=== PATIENT | female | born 1955 | race Caucasian/White ===

== ENCOUNTER 2020-02-12 18:36 | Inpatient (IN) | payer MEDICARE, MEDICAID ==
[~2020-02-12] VITALS: Ht 162.6 cm; Wt 75.5 kg
[2020-02-12] MEDS ORDERED: SODIUM CHLORIDE 0.9% 1,000 ML IVB ONE (19:18)
[2020-02-12 19:27] LABS: Basophils # (auto) 0.1 10 ^3/uL (0-0.2); Basophils % (auto) 0.5 % (0.0-2.0); Eosinophils # (auto) 0.1 10 ^3/uL (0-0.8); Eosinophils % (auto) 0.3 % (0.0-7.0); Hematocrit 49.5 % (36.0-46.0); Hemoglobin 16.4 g/dL (12.2-16.2); Lymphocytes # (auto) 7.7 10 ^3/uL (0.4-5.4); Lymphocytes % (auto) 35.1 % (10.0-50.0); Mean Corpuscular Hemoglobin 29.4 pg (28.0-32.0); Mean Corpuscular Hgb Conc. 33.1 g/dL (32.0-36.0); Mean Corpuscular Volume 88.8 fL (80.0-100.0); Monocytes % (auto) 4.6 % (0.0-12.0); Neutrophils # (auto) 13.1 10 ^3/uL (1.6-8.6); Neutrophils % (auto) 59.5 % (37.0-80.0); Nucleated Red Blood Cells % 0.2 %; Platelet Count (auto) 304 10^3/uL (140-450); Red Blood Cells 5.58 10^6/uL (4.0-5.20); White Blood Cell 22.1 10^3/uL (4.4-10.8)
[2020-02-12 19:51] LABS: Alanine Aminotransferase 215 U/L (13-56); Albumin 1.9 g/dL (3.4-5.0); Anion Gap 18 (5-15); Aspartate Aminotransferase 647 U/L (15-37); BUN/Creatinine Ratio 38.3; Blood Urea Nitrogen 57 mg/dL (7-18); Calcium 9.9 mg/dL (8.5-10.1); Carbon Dioxide 18 mmol/L (21-32); Chloride 82 mmol/L (98-107); GFR African American 45 mL/min; GFR Non-African American 37 mL/min
[2020-02-12 19:52] LABS: INR 1.81 (0.9-1.15); Partial Thromboplastin Time 55.8 sec (23.64-32.05)
[2020-02-12 20:02] LABS: Glucose 20 mg/dL (74-106); Sodium 118 mmol/L (136-145)
[2020-02-12] MEDS ORDERED: DEXTROSE (50%) 50ML SYRG IV ONE (20:15)
[2020-02-12 20:38] LABS: Bilirubin, Total 30.6 mg/dL (0.2-1.0); Blood Alcohol < 3.0 mg/dL (0-5)
[2020-02-12 21:28] LABS: Alkaline Phosphatase > 5000 U/L (45-117)
[2020-02-12 21:36] LABS: Total Protein 5.6 g/dL (6.4-8.2)
[2020-02-12 22:38] LABS: Urine Bacteria FEW /hpf (None Seen); Urine Blood 1+ /uL (Negative); Urine Hyaline Cast MOD /lpf (0 - 2); Urine Mucus FEW (None Seen); Urine Specific Gravity 1.016 (1.001-1.035); Urine WBC 2 /hpf (0 - 5)
[2020-02-12 22:49] LABS: Alcohol, Urine < 3.0 mg/dL (0-10); Amphetamine Screen, Urine NEGATIVE (NEGATIVE); Barbiturate Scree,Urine NEGATIVE (NEGATIVE); Benzodiazephine Screen, Urine NEGATIVE (NEGATIVE); Cannabinoid Screen, Urine NEGATIVE (NEGATIVE); Cocaine Screen, Urine NEGATIVE (NEGATIVE); Opiate Scree,Urine NEGATIVE (NEGATIVE); Phencyclidine Screen, Urine NEGATIVE (NEGATIVE)
[2020-02-12 23:08] LABS: Lactic Acid w/Reflex 2.5 mmol/L (0.4-2.0)
[2020-02-13] MEDS ORDERED: SODIUM CHLORIDE 0.9% 1,000 ML IV SCH (01:57)
[2020-02-13] MEDS ORDERED: NITROGLYCERIN 0.4 MG SL TAB SL PRN (02:00)
[2020-02-13] MEDS ORDERED: ACETAMINOPHEN 325 MG TAB PO PRN (02:00)
[2020-02-13] MEDS ORDERED: ONDANSETRON HCL 4 MG/2 ML VIAL IV PRN (02:00)
[2020-02-13] MEDS ORDERED: MORPHINE SULF INJ 2 MG/ML SYRINGE 1ML IV PRN ×2 (02:00)
[2020-02-13] MEDS ORDERED: HYDROcodone-ACET 5/325MG TAB PO PRN (02:00)
[2020-02-13] MEDS ORDERED: DOCUSATE SOD 100 MG CAP PO PRN (02:00)
[2020-02-13 08:38] LABS: Hemoglobin 15.4 g/dL (12.2-16.2); Mean Corpuscular Hemoglobin 29.2 pg (28.0-32.0); Mean Corpuscular Hgb Conc. 32.7 g/dL (32.0-36.0); Mean Corpuscular Volume 89.3 fL (80.0-100.0); Platelet Count (auto) 297 10^3/uL (140-450); Red Blood Cells 5.26 10^6/uL (4.0-5.20); Red Cell Distribution Width 16.9 % (11.8-14.3); White Blood Cell 23.8 10^3/uL (4.4-10.8)
[2020-02-13 08:40] LABS: Basophils % (manual) 0 (0.0-2.0); Blast Cells 0; Metamyelocytes % 0; Myelocytes % 0; Promyelocytes % 0; Reactive Lymphocytes 0
[2020-02-13 08:50] LABS: Band Neutrophils % (manual) 1; Eosinophils % (manual) 1 (0-7); Lymphocytes % (manual) 20 (10.0-50.0); Monocytes % (manual) 7 (0-12)
[2020-02-13 08:58] LABS: Albumin 1.8 g/dL (3.4-5.0); Calcium 9.5 mg/dL (8.5-10.1); Potassium 4.1 mmol/L (3.5-5.1)
[2020-02-13 09:12] LABS: BUN/Creatinine Ratio 35.2; Total Protein 4.6 g/dL (6.4-8.2)
[2020-02-13] MEDS ORDERED: DEXTROSE 50% SYRINGE 50 ML IV ONE (09:18)
[2020-02-13] MEDS ORDERED: DEXTROSE (50%) 50ML SYRG IV ONE (09:45)
[2020-02-13] MEDS ORDERED: DEXTROSE (50%) 50ML SYRG IV PRN (11:00)
[2020-02-13] MEDS ORDERED: DEXTROSE 10% 1,000 ML IV SCH (11:00)
[2020-02-13] MEDS: DEXTROSE 10% 1,000 ML IV SCH (14:59)
[2020-02-13] MEDS: SODIUM CHLORIDE 0.9% 1,000 ML IV SCH (14:59)
[2020-02-13] MEDS ORDERED: LACTULOSE 20Gm/30ML SOLN PR SCH (15:30)
--- NOTE | 2020-02-13 15:31 | NUR ---
AIR MATTRESS: Air mattress ordered at [facility]. YFN 02/13/20 @ 2128. Reference #[id number]. Please call [facility] at if needed to follow up. Addendum: 02/13/20 at 1532 by Kimberly Fernando RN Amended: Links added.
--- NOTE | 2020-02-13 15:55 | NUR ---
WOUND CARE NOTE: Wound care in to see patient per wound care request regarding sacral, buttock wounds that are noted present on admission. ED nurse took photograph of patient's wounds upon admission for reference. Patient is 64 y/o female with admitting diagnosis of Hepatic Encephalopathy, Metastatic Breast Cancer. Patient is resting in ED bed #6. Patient's eyes are closed, respirations even and unlabored. She's able to assist in turning and repositioning and her Yonny score is 13. Skin/wound assessment done with the assistance of patient' s nurse, NANNETTE Weems. Noted patient's skin is yellow. Her Lt (6x3cm) and Rt (8x4cm) sacrum has Unstageable pressure injury. Wound bed is covered with thin black eschar. Katy wound is bright red with skin erosion, black necrotic tissue to distal Rt and L lower buttocks. Patient's sacral/buttocks skin issue is consistent with Unstageable pressure injury with severe moisture associated skin damage. No drainage/odor noted on wounds. Patient is cleaned by staff but still smelling urine. Cleansed patient's wounds with wound cleanser, patted dry with gauze, applied Z Guard cream and covered sacral wounds with Opti foam sacral dressing. Intact ecchymosis also noted to her Rt lateral knee, area is clean and dry, left open to air. Patient tolerated well, repositioned patient for comfort, redistributed pressure points with pillows. RECOMMENDATION: Nursing to continue BID/PRN dressing change to sacral,buttocks wounds per MD order, Dietary consult, frequent turning and repositioning schedule as condition permits, redistribute pressure points with pillows;elevate heels on pillows; air mattress (ordered),frequent katy care/check, keep clean and dry, continue monitoring by wound care while patient is hospitalized. Addendum: 02/13/20 at 1730 by Kimberly Fernando RN Amended: Links added.
[2020-02-13] MEDS ORDERED: PIPERACILLIN-TAZOB 3.375GM 100 ML IV ONE (16:00)
[2020-02-13] MEDS ORDERED: LINEZOLID 600MG/300ML 300 ML IV ONE (16:00)
--- NOTE | 2020-02-13 18:20 | NUR ---
Admit to [facility] admitted to [facility] via gurney on cardiac exercise specialist, and portable 02. Patient transferred to bed, connected to unit monitoring and oxygen, and weighed by bedscale. Patient oriented to Yolanda Jacobs primary RN, unit, room, bed, and unit policies regarding patient care and visiting hours. All questions and concerns addressed, patient verbalized understanding. NOTE: PATIENT ORIENTED TO SELF ONLY. NOT ANSWERING RNS QUESTIONS. PATIENT MOANS AND MOVES AROUND IN BED. WITHIN VIEW OR NURSES STATION. RIGHT ARM RESTRICTED, BAND PLACED ON RIGHT ARM
[2020-02-13 18:53] VITALS: BP 89/53
--- NOTE | 2020-02-13 19:20 | NUR ---
OPENING SHIFT RECEIVED REPORT FROM DAY SHIFT RN. ASSUMED CARE OF PATIENT. PATIENT IN BED - ORIENTED TO SELF / UNABLE TO ANSWER QUESTIONS. PATIENT MOANS / GROANS, AND MOVES AROUND IN BED. NO SIGNS OR SYMPTOMS OF SOB, PAIN OR DISTRESS. CURRENTLY ON ROOM AIR, 02 SAT - 96%. LEFT ANTECUBITAL IV AND LEFT WRIST IV - CLEAN/DRY/INTACT. URIARTE HUNG TO GRAVITY. REPOSITIONED FOR COMFORT. BED IN LOWEST POSITION, SIDE RAILS UP X2. WILL CONTINUE TO MONITOR.
[2020-02-13] MEDS: ACCU-CHEK COMFORT CURVE STRIP VI SCH (20:00)
--- NOTE | 2020-02-13 20:18 | NUR ---
RECTAL TUBE PLACED PATENT AND DRAINING. WILL CONTINUE TO MONITOR.
--- NOTE | 2020-02-13 20:25 | NUR ---
PATIENT TRANSFERRED ON TO SPECIALTY BED.
--- NOTE | 2020-02-13 20:40 | NUR ---
SPOKE WITH DAUGHTER IN LAW (MONET) PASSWORD VERIFIED. UPDATED DAUGHTER IN LAW ON PLAN OF CARE AND PATIENT STATUS. ALL QUESTIONS AND CONCERNS ADDRESSED AND ANSWERED AT THIS TIME.
[2020-02-13] MEDS: PIPERACILLIN-TAZOB 3.375GM 100 ML IV SCH (21:00)
[2020-02-13] MEDS: LACTULOSE 20Gm/30ML SOLN PR SCH ×2 (22:00→23:54)
[2020-02-14] VITALS: BP 95/43
[2020-02-14] MEDS: SODIUM CHLORIDE 0.9% 1,000 ML IV SCH (00:30)
--- NOTE | 2020-02-14 01:30 | NUR ---
PAGED HOSPITALIST - AWAITING CALL BACK
--- NOTE | 2020-02-14 02:10 | NUR ---
SPOKE WITH SISTER (RADHA) PASSWORD VERIFIED. UPDATED SISTER ON PLAN OF CARE. ALL QUESTIONS AND CONCERNS ANSWERED AND ADDRESSED AT THIS TIME.
[2020-02-14] MEDS ORDERED: ALBUMIN 5% 250 ML IV ONE ×2 (02:45→06:30)
--- NOTE | 2020-02-14 02:48 | NUR ---
BP: Pt's SBP running in 70-80s. Hospitalist notified and order received for Albumin 5% 250ml IV. Albumin infusion begun at this time and to infuse over 1 hour.
[2020-02-14] MEDS: PIPERACILLIN-TAZOB 3.375GM 100 ML IV SCH ×4 (03:00→21:24)
[2020-02-14 04:00] VITALS: BP 92/51
[2020-02-14] MEDS: DEXTROSE 10% 1,000 ML IV SCH (04:00)
[2020-02-14] MEDS: ACCU-CHEK COMFORT CURVE STRIP VI SCH ×7 (04:15→23:35)
[2020-02-14 04:20] LABS: Hematocrit 44.7 % (36.0-46.0); Hemoglobin 14.3 g/dL (12.2-16.2); Mean Corpuscular Hemoglobin 29.5 pg (28.0-32.0); Mean Corpuscular Hgb Conc. 31.9 g/dL (32.0-36.0); Mean Corpuscular Volume 92.5 fL (80.0-100.0); Platelet Count (auto) 192 10^3/uL (140-450); Red Blood Cells 4.84 10^6/uL (4.0-5.20); Red Cell Distribution Width 19.1 % (11.8-14.3); White Blood Cell 25.9 10^3/uL (4.4-10.8)
[2020-02-14 04:34] LABS: Basophils % (manual) 0 (0.0-2.0); Blast Cells 0; Eosinophils % (manual) 0 (0-7); Metamyelocytes % 0; Myelocytes % 0; Promyelocytes % 0; Reactive Lymphocytes 0
[2020-02-14 04:45] LABS: Potassium 3.5 mmol/L (3.5-5.1)
[2020-02-14 05:06] LABS: Albumin 1.8 g/dL (3.4-5.0); BUN/Creatinine Ratio 33.2; Bilirubin, Total 26.6 mg/dL (0.2-1.0); Calcium 8.6 mg/dL (8.5-10.1); Total Protein 4.2 g/dL (6.4-8.2)
[2020-02-14] MEDS: LACTULOSE 20Gm/30ML SOLN PR SCH ×4 (05:30→23:40)
[2020-02-14] MEDS: LINEZOLID 600MG/300ML 300 ML IV SCH ×2 (06:26→17:46)
--- NOTE | 2020-02-14 06:29 | NUR ---
SPOKE WITH HOSPITALIST MADE AWARE BLOOD PRESSURE RUNNING IN THE 60'S-70'S. RECEIVED ORDERS FOR ALBUMIN 5% 250ML IV. NOTED AND CARRIED OUT. WILL CONTINUE TO MONITOR.
[2020-02-14 07:09] LABS: Band Neutrophils % (manual) 2; Lymphocytes % (manual) 15 (10.0-50.0); Monocytes % (manual) 6 (0-12)
--- NOTE | 2020-02-14 07:30 | NUR ---
Opening Shift Note Assumed care of patient, oriented to self only, re-orientation done. No S/S of distress/SOB or pain. See interventions for complete assessment. Specialty bed locked on low position, side rails up x2, bed alarms on at all times, call cardona within reach, instructed on POC and to call for assist PRN, will continue to monitor for changes Q1hr and PRN.
--- NOTE | 2020-02-14 07:43 | NUR ---
END OF SHIFT REPORT GIVEN TO DAY SHIFT RN. CARE ENDORSED.
[2020-02-14 08:00] VITALS: BP 108/54
--- NOTE | 2020-02-14 09:10 | NUR ---
Dr Palacio at bedside, updated on patient's status. Patient seen and examined. Will carry out new orders.
--- NOTE | 2020-02-14 10:30 | NUR ---
Dr Fontaine at bedside, updated on patient's status. Patient seen and examined. Will carry out new orders.
[2020-02-14] MEDS ORDERED: FUROSEMIDE 40 MG/4 ML VIAL IV ONE (10:45)
--- NOTE | 2020-02-14 11:30 | NUR ---
Patient out of room for Head CT.
--- NOTE | 2020-02-14 11:46 | NUR ---
Patient back to room from CT.
[2020-02-14 12:00] VITALS: BP 108/54
--- NOTE | 2020-02-14 12:15 | NUR ---
Consult Consider Nephrovite/Vit C 500mg BID for wound healing Est energy needs 3032-9808 kcal (30-33 kcal/kg BW 61.2kg) Est protein needs 37-49g (0.6-0.8g/kg BW 61.2kg r/t elevated RFTs) Will reassess prn Addendum: 02/14/20 at [address] Amended: Links added.
--- NOTE | 2020-02-14 12:30 | NUR ---
Dr Silver at bedside, updated on patient's status. Patient seen and examined. Will carry out new orders.
--- NOTE | 2020-02-14 13:00 | NUR ---
IV removal LT AC IV leaking, puffy and bruised, IV discontinued with sterile technique, catheter fully intact. Pressure dressing applied to site. Patient tolerated procedure well.
--- NOTE | 2020-02-14 14:27 | NUR ---
Received call from patient's sister Daysi who's able to provide password. Updated on patient's status and POC, verbalized understanding. All questions and concerns addressed.
[2020-02-14 16:00] VITALS: BP 95/53
[2020-02-14] MEDS: DEXTROSE (50%) 50ML SYRG IV PRN ×2 (16:01→23:35)
--- NOTE | 2020-02-14 16:36 | NUR ---
Received call from patient's daughter in law Antonella who's able to provide password. Updated on patient's status and POC, verbalized understanding. All questions and concerns addressed.
[2020-02-14] MEDS ORDERED: D5W/SOD CHLO 0.9% 1,000 ML IV SCH (17:45)
--- NOTE | 2020-02-14 19:30 | NUR ---
OPENING NOTE RECEIVED REPORT FROM FINA RN PATIENT IS AWAKE, OPENS EYES TO NAME, BUT DOES NOT VERBALLY RESPOND. PATIENT CONNECTED TO MONITORS.PATIENT ON ROOM AIR, SPO2 AT 95%. PHYSICAL ASSESSMENT DONE-SEE INTERVENTIONS. OVERALL SKIN IS JAUNDICED AND MULTIPLE PRESSURE AREAS TO LEFT AND RIGHT BUTTOCKS WELL MASD TO BUTTOCKS. URIARTE IN PLACE DRAINING LIGHT NEGRITA URINE. FLEXISEAL IN PLACE DRAINING LIQUID BROWN STOOL. PATIENT ABLE TO MOVE AROUND AND REPOSITION. AIR MATTRESS IN PLACE, WILL ASSIST WITH REPOSITIONS Q2H. FALL PRECAUTIONS IN PLACE, CALL LIGHT WITHIN REACH.
[2020-02-14 20:00] VITALS: BP 91/46
--- NOTE | 2020-02-14 23:35 | NUR ---
LOW BLOOD SUGAR BLOOD SUGARS 65 AND 55 CHECKED BY CTT PATIENT UNABLE TO SWALLOW. D50 ADMINISTERED PER PROTOCOL FOR BLOOD GLUCOSE LESS THAN 60. WILL REASSESS BLOOD GLUCOSE IN 30 MINUTES
[2020-02-15] VITALS (40 sets, daily range): BP systolic 78–131; BP diastolic 34–74
--- NOTE | 2020-02-15 00:20 | NUR ---
BLOOD GLUCOSE NOW AT 169 WILL CONTINUE TO MONITOR CLOSELY
--- NOTE | 2020-02-15 00:41 | NUR ---
LOW BP/ HOSPITALIST PAGED PAGED HOSPITALIST RE: LOW BLOOD PRESSURES. SYSTOLIC IN 80'S. UNABLE TO GET ANY HIGHER READINGS DESPITE MOVING BP CUFF AND TRYING DIFFERENT SITES. WILL WAIT FOR CALL BACK.
--- NOTE | 2020-02-15 00:51 | NUR ---
RECEIVED CALL BACK FROM HOSPITALIST UPDATED HOSPITALIST ON CURRENT LOW BLOOD PRESSURES. NEW ORDER RECEIVED FOR ALBUMIN 5% 250ML X 1. ORDER READ BACK, WILL CARRY OUT ORDER.
[2020-02-15] MEDS ORDERED: ALBUMIN 5% 250 ML IV ONE (01:00)
[2020-02-15] MEDS: PIPERACILLIN-TAZOB 3.375GM 100 ML IV SCH ×3 (03:00→14:24)
[2020-02-15 03:27] LABS: Hematocrit 38.4 % (36.0-46.0); Hemoglobin 12.9 g/dL (12.2-16.2); Mean Corpuscular Hemoglobin 29.8 pg (28.0-32.0); Mean Corpuscular Hgb Conc. 33.7 g/dL (32.0-36.0); Mean Corpuscular Volume 88.4 fL (80.0-100.0); Platelet Count (auto) 150 10^3/uL (140-450); Red Blood Cells 4.35 10^6/uL (4.0-5.20); Red Cell Distribution Width 18.8 % (11.8-14.3); White Blood Cell 24.6 10^3/uL (4.4-10.8)
[2020-02-15 03:37] LABS: Basophils % (manual) 0 (0.0-2.0); Blast Cells 0; Eosinophils % (manual) 0 (0-7); Metamyelocytes % 0; Myelocytes % 0; Promyelocytes % 0; Reactive Lymphocytes 0
[2020-02-15 03:47] LABS: Calcium 8.5 mg/dL (8.5-10.1)
[2020-02-15 04:06] LABS: Albumin 2.3 g/dL (3.4-5.0); Bilirubin, Total 29.8 mg/dL (0.2-1.0); Total Protein 4.5 g/dL (6.4-8.2)
[2020-02-15 04:08] LABS: Potassium 2.8 mmol/L (3.5-5.1)
--- NOTE | 2020-02-15 04:09 | NUR ---
CRITICAL LAB RECEIVED CALL FROM ANIL IN LAB. RECEIVED CRITICAL POTASSIUM OF 2.8. WILL NOTIFY HOSPITALIST
[2020-02-15 04:13] LABS: INR 2.17 (0.9-1.15)
--- NOTE | 2020-02-15 04:13 | NUR ---
PAGED HOSPITALIST RE: CRITICAL LAB POTASSIUM AND LOW BLOOD SUGAR WILL WAIT FOR CALL BACK
--- NOTE | 2020-02-15 04:30 | NUR ---
AM CARES PATIENT GIVEN COMPLETE BED BATH USING CHG WIPES. WARM SOAPY WASH CLOTHS USED TO CLEAN PATIENTS FACE AND NECK. ORAL CARE PROVIDED TO PATIENT WELL. COMPLETE LINEN AND GOWN CHANGE PROVIDED.
--- NOTE | 2020-02-15 04:40 | NUR ---
RECEIVED CALL BACK FROM HOSPITALIST CORA UPDATED HOSPITALIST ON CRITICAL POTASSIUM LEVEL WELL LOW BLOOD SUGARS. NEW ORDERS RECEIVED. WILL CARRY OUT ORDERS
[2020-02-15] MEDS ORDERED: DEXTROSE 10% 1,000 ML IV SCH (04:45)
[2020-02-15] MEDS: ACCU-CHEK COMFORT CURVE STRIP VI SCH ×5 (05:05→20:18)
[2020-02-15] MEDS: POTASSIUM CHL 20MEQ/100ML 100 ML IV SCH ×4 (05:17→18:04)
[2020-02-15] MEDS: LACTULOSE 20Gm/30ML SOLN PR SCH ×3 (05:35→17:39)
[2020-02-15 05:38] LABS: Band Neutrophils % (manual) 8; Lymphocytes % (manual) 11 (10.0-50.0); Monocytes % (manual) 2 (0-12)
[2020-02-15] MEDS: LINEZOLID 600MG/300ML 300 ML IV SCH ×2 (05:45→18:04)
--- NOTE | 2020-02-15 06:03 | NUR ---
URINE SAMPLE COLLECTED AND SENT TO LAB
--- NOTE | 2020-02-15 07:14 | NUR ---
CLOSING PATIENT RESTING IN BED, CONNECTED TO ALL MONITORS. NO SIGNS OF DISTRESS. PATIENT FINISHING SECOND BAG OF K RIDER. CARE ENDORSED TO DAYSHIFT NANNETTE LAU.
[2020-02-15 07:30] LABS: Sodium Urine 25 mmol/L (40-220)
--- NOTE | 2020-02-15 07:30 | NUR ---
Opening Shift Note Assumed care of patient, oriented x2, re-orientation done. No S/S of distress/SOB or pain. See interventions for complete assessment. Bed locked on low position, side rails up x2, bed alarms on at all times, call cardona within reach, instructed on POC and to call for assist PRN, will continue to monitor for changes Q1hr and PRN.
[2020-02-15 07:32] LABS: Creatinine, Urine 32 mg/dL (30.0-125.0)
--- NOTE | 2020-02-15 07:36 | NUR ---
Received call back from George Abraham NP, updated on patient's status. Verbalized understanding and states "Let me check her chart, I'll call you back." Addendum: 02/15/20 at 1800 by Ramonita Fontaine RN Time [phone] instead of [phone]
--- NOTE | 2020-02-15 10:40 | NUR ---
Dr Silver at bedside, updated on patient's status. Patient seen and examined. Will carry out new orders.
[2020-02-15] MEDS ORDERED: SOD CHL 0.9%/ KCL 20MEQ 1,000 ML IV SCH (10:45)
--- NOTE | 2020-02-15 10:46 | NUR ---
Dr Palacio at bedside, updated on patient's status. Patient seen and examined. Will carry out new orders.
--- NOTE | 2020-02-15 11:59 | NUR ---
Dr Fontaine at bedside, updated on patient's status. Patient seen and examined. Will carry out new orders.
--- NOTE | 2020-02-15 12:01 | NUR ---
Received call from patient's sister Daysi who's able to provide password. Updated on patient's status and POC. All questions and concerns addressed.
--- NOTE | 2020-02-15 12:29 | NUR ---
Dr Carvajal at [facility], updated on patient's status. Patient seen and examined. Will carry out new orders.
--- NOTE | 2020-02-15 13:15 | NUR ---
Spoke to patient's sister Daysi over the phone claiming she's the POA but have no records at this time. Stated "But I remember years ago when she was hospitalized at [facility] I gave the a copy of the POA. I called them to ask a copy but they said that you're facility needs to request for the record." Paged Dr Palacio. Awaiting call back.
[2020-02-15] MEDS: SODIUM BICARBONATE IV SCH (13:37)
[2020-02-15] MEDS: DEXTROSE IV SCH (13:37)
--- NOTE | 2020-02-15 14:53 | NUR ---
assessment re: ss consult Patient is a 64 year old female who is sleeping. Per patients daughter in law Antonella prior to admission patient lived home with her and needed assistance for the past 2 weeks. Per Antonella she and her family has been caring for patient daily for 2 weeks or so. Antonella informed me patient does not want to get off the couch. Patient is becoming more weak. Patient has breast cancer with mets. I informed Antonella this may be part of the disease process and she needs to speak with the MD regarding patients prognosis. I also addressed decision making with Antonella. I informed her without a POA patients would be the one to make decisions for her if she is confused. Patient would have to be alert and oriented x4 to sign for POA and advanced directive. Antonella verbalized understanding. I informed Antonella I would continue to monitor as appropriate. Addendum: 02/15/20 at 1509 by Monserrat DICKERSON Amended: Links added.
--- NOTE | 2020-02-15 15:00 | NUR ---
Giovanni mathew requesting patient's medical records including copy of POA from [facility], called back, received telephone order to request medical records. Read back and verified. Will carry out.
--- NOTE | 2020-02-15 16:30 | NUR ---
Unable to fax medical records request, patient unable to sign, awaiting signature from MD.
--- NOTE | 2020-02-15 17:25 | NUR ---
Patient's SBP 70' to 80's, paged George Abraham CUTTING TABLE OPERATOR FIRST, awaiting call back.
[2020-02-15] MEDS ORDERED: SODIUM CHLORIDE 0.9% 250 ML IV ONE (17:45)
--- NOTE | 2020-02-15 17:45 | NUR ---
Received telephone order from George Abraham NP to give NS 250 bolus and if BP is still low start patient on Levophed drip and upgrade to ICU status. Read back and verified. Will carry out.
[2020-02-15 18:03] LABS: Potassium 3.6 mmol/L (3.5-5.1)
[2020-02-15 18:08] LABS: BUN/Creatinine Ratio 25.3; Calcium 7.9 mg/dL (8.5-10.1); Magnesium 2.3 mg/dL (1.6-2.6)
[2020-02-15] MEDS ORDERED: NOREPINEPHRINE 8 MG/250ML KIT 250 ML IV ONE (18:51)
[2020-02-15] MEDS: NOREPINEPHRINE 8 MG/250ML KIT 250 ML IV SCH (18:58)
--- NOTE | 2020-02-15 20:00 | NUR ---
REPORT RECEIVED AND ASSUMED CARE; SEE INTERVENTIONS FOR ASSESSMENT; VS STABLE AT THIS TIME-WITH PT. ON LEVOPHED GTT; PT. ALERT TO SELF ONLY; WILL CONT. TO MONITOR.
[2020-02-15] MEDS: DEXTROSE (50%) 50ML SYRG IV PRN (20:34)
--- NOTE | 2020-02-15 21:30 | NUR ---
REPEAT XH=192 AFTER RECEIVING X1 AMP DEXTROSE FOR PREVIOUS BS= 53; WILL CONT. TO MONITOR; CURRENTLY ATTEMPTING TO PLACE ANOTHER PIV TO INFUSE D10-PT. VERY HARD STICK.
[2020-02-15] MEDS: MEROPENEM 1GM IVPB 100 ML IV SCH (22:00)
[2020-02-15] MEDS ORDERED: POTASSIUM CHL 20MEQ/100ML 0 ML IV ONE (22:18)
[2020-02-16] VITALS (90 sets, daily range): BP systolic 85–145; BP diastolic 45–82
--- NOTE | 2020-02-16 | NUR ---
BS= 85
--- NOTE | 2020-02-16 01:55 | NUR ---
BS= 66
--- NOTE | 2020-02-16 02:12 | NUR ---
PROVIDED PT. WITH [facility] AND NOTICED PT. HAVING CLOTS FROM RECTUM AND BRIGHT RED BLOOD BOTH FROM ANUS AREA AND INSIDE RECTAL TUBE-SMALL AMOUNT; PLACED RX FOR CBC STAT AND WILL AWAIT RESULT.
--- NOTE | 2020-02-16 03:45 | NUR ---
REPORT GIVEN TO HEATHER RN AND PT. TRANSFERRED TO ICU BED #104.
--- NOTE | 2020-02-16 04:00 | NUR ---
LABS NEEDING TO BE RE-DRAWN PER LAB VALUES ARE OFF AND POSSIBLE CONTAMINATION FROM D10 IVF; LAB AT BEDSIDE IN ICU BED #104 TO OBTAIN FOLLOW UP LABS.
--- NOTE | 2020-02-16 04:15 | NUR ---
RECEIVED PT FROM [facility]/INITIAL ASSESSMENT PT ARRIVED ON UNIT VIA AIR MATTRESS AND COOLING PAN TENDER IN PLACE. VITAL SIGNS STABLE. ALL MEDICATIONS RUNNING IV PER MD ORDERS. PT IS AWAKE BUT NOT ORIENTED. SHE DOES TURN HER HEAD WHEN HER NAME IS CALLED AND WITHDRAWALS TO ORAL CARE BEING DONE. PUPILS ARE REACTIVE. PT IS RUNNING SR ON MONITOR IN 90'S AND LEVOPHED CURRENTLY AT 5 MCG WITH BP IN 110'S SYSTOLIC AND MAP >65. CUFF IS APPLIED TO RLE DUE TO PT HAVING PREVIOUS MASTECTOMY AND A RESTRICTED RUE. RESTRICTED EXTREMITY, FALL, AND NAME BANDS APPLIED. ALL PULSES ARE PALPABLE WITH NO EDEMA NOTED. PT OBSERVED TO BE IN A STATE OF CACHEXIA. LUNGS ARE CLEAR TO AUSCULTATION, 2L NASAL CANNULA APPLIED SUPPLEMENTAL O2 SATS MAINTAINING >93%. PT HAS RECTAL TUBE IN PLACE AND DRAINAGE AND ANUS ARE BLOODY/PINK TINGED, LATEST HGB WAS STABLE. URIARTE CATHETER IN PLACE AND DRAINING APPROPRIATELY. SKIN IS NOT INTACT. THERE ARE MULTIPLE WOUNDS NOTED TO SACRAL AREA. WOUND CARE DONE AND OPTIFOAMS APPLIED UPON INITIAL ASSESSMENT. SCD APPLIED TO LLL PREVENTATIVE. PUT TURNED TO RIGHT SIDE. WILL CONTINUE TO MONITOR AND ASSESS PT.
[2020-02-16 04:26] LABS: Hematocrit 41.2 % (36.0-46.0); Hemoglobin 13.8 g/dL (12.2-16.2); Mean Corpuscular Hemoglobin 29.5 pg (28.0-32.0); Mean Corpuscular Hgb Conc. 33.6 g/dL (32.0-36.0); Mean Corpuscular Volume 87.9 fL (80.0-100.0); Platelet Count (auto) 145 10^3/uL (140-450); Red Blood Cells 4.69 10^6/uL (4.0-5.20); Red Cell Distribution Width 18.9 % (11.8-14.3); White Blood Cell 27.8 10^3/uL (4.4-10.8)
[2020-02-16 04:36] LABS: Albumin 2.1 g/dL (3.4-5.0); Calcium 8.5 mg/dL (8.5-10.1); Magnesium 2.6 mg/dL (1.6-2.6); Potassium 3.3 mmol/L (3.5-5.1)
[2020-02-16 04:41] LABS: INR 2.2 (0.9-1.15)
[2020-02-16 04:51] LABS: BUN/Creatinine Ratio 24.6; Bilirubin, Total 30.5 mg/dL (0.2-1.0); Total Protein 4.5 g/dL (6.4-8.2)
[2020-02-16 05:09] LABS: Basophils % (manual) 0 (0.0-2.0); Blast Cells 0; Eosinophils % (manual) 0 (0-7); Myelocytes % 0; Promyelocytes % 0; Reactive Lymphocytes 0
[2020-02-16] MEDS: ACCU-CHEK COMFORT CURVE STRIP VI SCH ×6 (05:14→20:00)
[2020-02-16] MEDS ORDERED: POTASSIUM CHL 20MEQ/100ML 100 ML IV ONE ×2 (06:00→06:10)
[2020-02-16 06:05] LABS: Band Neutrophils % (manual) 7; Lymphocytes % (manual) 7 (10.0-50.0); Metamyelocytes % 1; Monocytes % (manual) 4 (0-12)
[2020-02-16] MEDS: LINEZOLID 600MG/300ML 300 ML IV SCH (06:15)
[2020-02-16] MEDS: LACTULOSE 20Gm/30ML SOLN PR SCH ×4 (06:15→18:42)
--- NOTE | 2020-02-16 07:05 | NUR ---
PT CARE DID FULL BEN AND GOWN CHANGE DUE TO LEAKING RECTAL TUBE. PT CLEANED AND OPTIFOAMS REMAIN IN TACT.
--- NOTE | 2020-02-16 07:30 | NUR ---
AM ASSESSMENT COMPLETED. PT ON LIVER FAILURE DYING FROM HEPATIC ENCEPHALOPATHY, PT ON ICU FOR BP SUPPORT , CURRENTLY ON LEVOPHED AT 5 MCG /MIN VIA 22 # IV ON LT WRIST PT ALSO RECEIVING D10 WITH 3 AMPS OF BICARB AT 40 ML/HR FOR HYPOGLYCEMIA. PT GETTING LACTULOSE ENEMA'S Q 8 HOUR FOR AN AMMONIA OF 41, K WAS 3.3 PT ALREADY RECEIVED A 20 KCL RIDER. PT HAS MULTIPLE WOUND ON HER COCCYX THAT ARE OOZING BLOOD, PT'S DRESSINGS JUST CHANGED PRIOR TO SHIFT CHANGE. PT ON Q 2 HOUR TURNS, PT HAS AN AIR SPECIALTY MATTRESS THAT HAS TURN ASSIST. PT ONLY ORIENTED TO HERSELF. ANSWERS SIMPLE YES AND NO QUESTIONS. PT IS JAUNDICE. URIARTE DRAINING DARK YELLOW URINE BILE LOOKING WITH A STRONG ODOR. PT'S MOUTH WITH A STRONG ODOR AND HAS OLD BLOOD WITH CLOTS OR ULCERS INSIDE OF MOUTH. PT ALLOWS VERY LITTLE MOUTH CARE.
[2020-02-16] MEDS: MEROPENEM 1GM IVPB 100 ML IV SCH (08:53)
--- NOTE | 2020-02-16 09:55 | NUR ---
DR. ARTEAGA IN TO SEE AND ASSESS PT. UPDATED ON PT'S CONDITION. STATES " THERE IS NOT MUCH TO DO FOR PT PT IS ACTIVELY DYING WITH LIVER FAILURE AND CA WITH METS TO THE BONES AND TO THE LUNGS PT NEEDS HOSPICE CARE, COMFORT CARE, I ALREADY MENTIONED THIS TO DR. FAROOQ". NO NEW ORDERS RECEIVED AT THIS TIME.
--- NOTE | 2020-02-16 10:10 | NUR ---
DR. SHAHID TOBACCO SIEVE OPERATOR ROUNDING ON PT SHE ASSESSED PT. SHE STATES PT SHOULD BE MADE DNR AND HOSPICE CARE. PT HAS REFUSED CHEMO A YEAR AGO. MD WILL FIND OUT WHO IS THE PRIMARY MD. ASSIGNED TO PT TODAY TO SEE IF THE MD COULD SPEAK TO PT'S FAMILY AND MAKE PT AT LEST DNR. PT IS AWAKE ALERT TO SELF ONLY. AMMONIA LEVEL IS 41 TODAY.
--- NOTE | 2020-02-16 11:55 | NUR ---
ABG CANCELED PER DR FOREMAN ORDER. RN MADE AWARE.
--- NOTE | 2020-02-16 13:04 | NUR ---
DR. HERNANDEZ ROUNDED ON PT MD CALLED PT'S TO DISCUSS CODE STATUS . PT'S DECIDED TO MAKE PT DNR AND TO TAKE PT HOME ON HOSPICE. MD STILL HAS TO COMMUNICATE WITH PT'S SISTER BEFORE DETERMINING WHAT TO DO WITH VASOPRESSORS. PT REMAINS ON LEVOPHED AT 5 DEBO/MIN AND IS VERY SENSITIVE TO TITRATION.
[2020-02-16] MEDS: NOREPINEPHRINE 8 MG/250ML KIT 250 ML IV SCH (14:05)
--- NOTE | 2020-02-16 14:08 | NUR ---
US TECH AT BEDSIDE DOING US OF KIDNEYS.
--- NOTE | 2020-02-16 14:17 | NUR ---
re-assessment Per consult hospice evaluation. I called patients Jagdish Tamayo [phone] and informed him of patients ss consult. Jagdish has been read a list of medicare providers. Per Jagdish he wants a company that has the least complaints. I read him 3 companies that get little or no complaints and Jagdish chose [facility] hospice. order has been sent to [facility]. Sanjuanita from [facility] is meeting with Jagdish at his home to sign consents. Waiting on equipment to be delivered and discharge now. Addendum: 02/16/20 at 1422 by Monserrat DICKERSON Amended: Links added.
[2020-02-16] MEDS ORDERED: SODIUM CHLORIDE 0.9% 250 ML IV ONE (14:45)
--- NOTE | 2020-02-16 14:46 | NUR ---
DR. MORENOHA IN TO SEE PT. TO MANAGE MEDICAL HOSPICE CARE. NEW ORDERS RECEIVED. DISCONTINUED ABG THAT DR. SHAHID HAD ORDERED. PT ON HOSPICE CARE AND COMFORT CARE.
--- NOTE | 2020-02-16 15:37 | NUR ---
DR. HERNANDEZ CALLED SHE HAS NOT BEING ABLE TO GET HOLD OF PT'S SISTER IN LAW. PT IS GOING TO BE DISCHARGE ON HOSPICE . PT WILL BE KEPT ON LEVOPHED UNTIL PT GETS DISCHARGED AND READY TO BE PICKED UP BY HOSPICE. RT WILL BE REMOVED URIARTE WILL STAY IN PLACE. HAIR WORKER JOLYNN AWARE.
--- NOTE | 2020-02-16 15:45 | NUR ---
HYPOTENSION BP 88/51 LEFT LEVOPHED AT 5 MCG/ MIN MAP REMAINS AT 63 WILL MONITOR CLOSELY.
--- NOTE | 2020-02-16 16:00 | NUR ---
HYPOTENSION BP 86/52 MAP 63 WILL KEEP ON MONITORING.
--- NOTE | 2020-02-16 16:01 | NUR ---
DR. HERNANDEZ CALLED SHE SPOKE WITH JOLYNN OUR SHIFT LEADER. SHE WAS ABLE TO GET HOLD OF PT'S DAUGHTER RADHA , SHE IS THE POA, SHE WOULD LIKE TO COME TO SEE PT TONIGHT SHE IS COMING FROM OUT OF STATE. WILL WRITE A COMMUNICATION ORDER STATING THAT IT IS OK FOR PT'S DAUGHTER TO VISIT PT, SINCE PT IS BEING PLACED ON HOSPICE AND IS NOW DNR. WILL SET UP FOR HOSPICE FOR TOMORROW.
[2020-02-16] MEDS: SODIUM BICARBONATE IV SCH (17:01)
[2020-02-16] MEDS: DEXTROSE IV SCH (17:01)
--- NOTE | 2020-02-16 17:30 | NUR ---
BP 85/52 MAP 63, LEVO NOT ADJUSTED, KEPT AT SAME RATE.
--- NOTE | 2020-02-16 17:59 | NUR ---
PT'S DAUGHTER'S IN TO SEE PT.
--- NOTE | 2020-02-16 18:45 | NUR ---
BP 86/53 MAP 64 NO ADJUSTMENTS TO LEVOPHED. BOTH IV'S REMAIN BENIGN AND PATENT.
--- NOTE | 2020-02-16 19:00 | NUR ---
Opening Shift Note Assumed care of pt at this time. Initial assessment done, see interventions. VSS. Bed locked in lowest position. All alarms on and audible. Levophed infusing through peripheral IV. site benign and asymptomatic, IV patent. Will continue to monitor closely. Call light within reach.
[2020-02-16] MEDS ORDERED: MEROPENEM 500MG IVPB 50 ML IV SCH (20:00)
[2020-02-17] VITALS (63 sets, daily range): BP systolic 81–122; BP diastolic 43–72
[2020-02-17] MEDS: ACCU-CHEK COMFORT CURVE STRIP VI SCH ×4 (04:00→11:22)
--- NOTE | 2020-02-17 04:00 | NUR ---
Cares/ Wound care Pt given bed bath and wound care done to sacral wound and rectal area. Pt tolerated well. Optifoam placed to upper back where blanchable redness noted.
[2020-02-17] MEDS: LACTULOSE 20Gm/30ML SOLN PR SCH ×3 (05:20→11:22)
[2020-02-17 05:27] LABS: BUN/Creatinine Ratio 26.3; Calcium 8.6 mg/dL (8.5-10.1)
[2020-02-17 05:40] LABS: Potassium 2.6 mmol/L (3.5-5.1)
[2020-02-17] MEDS ORDERED: POTASSIUM CHLORIDE 40 MEQ, LIDOCAINE 1% (LOCAL ANESTH.) 4 ML in SODIUM CHL 0.9% 100 ML IV ONE (05:45)
--- NOTE | 2020-02-17 05:45 | NUR ---
Received critical potassium level of 2.6. Spoke with hospitalist, new order received.
[2020-02-17] MEDS: MORPHINE SULF INJ 2 MG/ML SYRINGE 1ML IV PRN ×2 (06:01→06:38)
--- NOTE | 2020-02-17 07:21 | NUR ---
REPORT RECEIVED FROM SOFTWARE RELEASE MANAGER RN
[2020-02-17] MEDS ORDERED: ALBUMIN 5% 250 ML IV ONE (08:00)
[2020-02-17] MEDS ORDERED: cefTRIAXone 1GM/50ML D5W 50 ML IV SCH (09:00)
[2020-02-17] MEDS: POTASSIUM CHL 20MEQ/100ML 100 ML IV SCH ×2 (09:00→09:03)
--- NOTE | 2020-02-17 10:45 | NUR ---
TELEPHONE CONSENT OBTAINED WITH NANNETTE HATHAWAY REGARDING DISCHARGE. SPOKE WITH SISTER AMANDA IN REGARDS TO DISCHARGE AND PLAN OF CARE. ALL QUESTIONS AND CONCERNS ADDRESSED AT THIS TIME
--- NOTE | 2020-02-17 11:01 | NUR ---
WOUND PHOTO TAKEN OF BUTTOCKS
--- NOTE | 2020-02-17 11:54 | NUR ---
DR. HERNANDEZ AT BEDSIDE
--- NOTE | 2020-02-17 12:55 | NUR ---
Nutrition Followup Wt 75.5 kg Pt`s sleeping with no family by bedside. per records pt terminally ill. per RN pt NPO and will b on hospice. Est energy needs 7148-4062 kcal (30-33 kcal/kg BW 61.2kg) Est protein needs 37-49g (0.6-0.8g/kg BW 61.2kg r/t elevated RFTs) Will reassess prn Labs: BUN 75 H, CREAT 2.85 H BM: Pt with no BM noted per RN doc Skin: BS 11, high risk, full wound care details in RN doc PES: Altered nutrition related lab values aeb elevated LFTs, RFTs, severe hypoalb r/t current medical condition Comments Will continue to closely monitor pertinent labs, NPO status and skin status prn. Will followup in 2-3 days 1) Gradually advance when medically feasible and as tolerated. 2) Continue current plan of care
--- NOTE | 2020-02-17 13:40 | NUR ---
re-assessment All consents are signed and equipment is delivered. Patient will be transported home by [facility] at 4pm today post discharge. Jagdish verbalized understanding and agreed to discharge plan home on hospice. Dariusz BRUNSON has been notified. Addendum: 02/17/20 at 1342 by Monserrat DICKERSON Amended: Links added.
--- NOTE | 2020-02-17 14:18 | NUR ---
FLEXISEAL LEAKING REMOVED AND PATIENT CLEANSED
--- NOTE | 2020-02-17 14:21 | NUR ---
COMPLETE LINEN CHANGE PERFORMED AT THIS TIME
--- NOTE | 2020-02-17 16:21 | NUR ---
TRANSPORTATION HERE TO COLD FOOD PACKER PATIENT
--- NOTE | 2020-02-17 16:30 | NUR ---
IVS REMOVED AND PRESSURE DRESSING PLACED
--- NOTE | 2020-02-17 16:32 | NUR ---
DNR GIVEN TO TRANSPORTATION CREW
--- NOTE | 2020-02-17 16:37 | NUR ---
PATIENT DISCHARGED WITH ALL PATIENT BELONGINGS, IV'S REMOVED AND URIARTE DRAINING TO GRAVITY. SISTER RADHA NOTIFIED THAT PATIENT IS ON HER WAY
== END 2020-02-17 16:30 | disposition hospice, home (50) | DRG 720 ==
LOC: EDUNIT# 18:36 → EDBD 18:36 → ER 18:40 → OVERFLOW 18:41 → DOU IN ICU 02-13 18:14 → ICU WEST 02-16 04:15
PROVIDERS: ADMIT Hospitalist; ATTEND Internal Medicine
DX: A41.9 Sepsis, unspecified organism (principal); K72.01 Acute and subacute hepatic failure with coma; K76.7 Hepatorenal syndrome; N17.0 Acute kidney failure with tubular necrosis; E43 Unspecified severe protein-calorie malnutrition; G92 Toxic encephalopathy; L89.150 Pressure ulcer of sacral region, unstageable; D68.9 Coagulation defect, unspecified; E87.1 Hypo-osmolality and hyponatremia; J18.9 Pneumonia, unspecified organism; C78.7 Secondary malignant neoplasm of liver and intrahepatic bile duct; C50.919 Malignant neoplasm of unspecified site of unspecified female breast; E86.0 Dehydration; C79.51 Secondary malignant neoplasm of bone; K72.90 Hepatic failure, unspecified without coma; E87.6 Hypokalemia; E78.5 Hyperlipidemia, unspecified; E78.00 Pure hypercholesterolemia, unspecified; E87.2 Acidosis; Z66 Do not resuscitate; E16.2 Hypoglycemia, unspecified; N39.0 Urinary tract infection, site not specified; J44.0 Chronic obstructive pulmonary disease with (acute) lower respiratory infection; R65.20 Severe sepsis without septic shock; F32.9 Major depressive disorder, single episode, unspecified; Z90.11 Acquired absence of right breast and nipple; Z90.711 Acquired absence of uterus with remaining cervical stump; Z90.49 Acquired absence of other specified parts of digestive tract; Z90.89 Acquired absence of other organs; Z80.3 Family history of malignant neoplasm of breast; Z80.1 Family history of malignant neoplasm of trachea, bronchus and lung; Z80.8 Family history of malignant neoplasm of other organs or systems; Z87.891 Personal history of nicotine dependence; Z68.28 Body mass index [BMI] 28.0-28.9, adult; Z03.818 Encounter for observation for suspected exposure to other biological agents ruled out
CPT/HCPCS: 36415; 36600; 51702; 70450; 71045; 76705; 76775; 80048; 80053; 80061; 80307; 80320; 81001; 82140; 82570; 82805; 82962; 83605; 83735; 83880; 83930; 83935; 84132; 84300; 84443; 84484; 85007; 85025; 85027; 85610; 85730; 87040; 87086; 87088; 87186; 93005; 96361; 96365; 96375; 96376; G0378; J0696; J2001; J2185; J2543; J3480; J7042